=== PATIENT | female | born 1955 | race Caucasian/White ===

== ENCOUNTER 2018-02-21 08:33 | Day surgery (SDC) | payer OTHER ==
[2018-02-20 09:06] VITALS: BMI 43.4
[2018-02-21] MEDS ORDERED: MIDAZOLAM HCL 2 MG/2 ML SINGLE DOSE VIAL ONE (10:17)
[2018-02-21] MEDS ORDERED: PROPOFOL 20 ML ONE (10:17)
[2018-02-21] MEDS ORDERED: DEXAMETHASONE SOD PHOSPHATE 4 MG/1 ML VIAL ONE ×3 (10:19→11:00)
[2018-02-21] MEDS ORDERED: LIDOCAINE HCL/PF 2% SDV 5ML VIAL ONE ×2 (10:19→10:58)
[2018-02-21] MEDS ORDERED: KETOROLAC TROMETHAMINE 30 MG/1 ML VIAL ONE (10:59)
[2018-02-21] MEDS ORDERED: LACTATED RINGERS SOLUTION 1,000 ML IV SCH (11:30)
[2018-02-21] MEDS ORDERED: oxyCODONE HCL 5 MG TABLET PO PRN ×2 (11:30)
[2018-02-21] MEDS ORDERED: ONDANSETRON 4 MG/2 ML VIAL IVPUSH PRN (11:30)
[2018-02-21 12:21] VITALS: PULSE 68
[2018-02-21 13:39] VITALS: BP 123/69; TEMP 97.7
--- NOTE | 2018-02-25 10:45 | PATH ---
Surgical Pathology Report Patient Name: OKSANA FERNANDEZ [facility]. Rec. #: [id number] /Age/Gender: 1955 (Age: 62) / F Account: [id number] Location: [facility] SURGICAL Taken: 02/21/2018 Received: 02/21/2018 Reported: 02/25/2018 Physicians: Jose Newman DO Specimen(s) Received A: ENDOCERVICAL CURETTINGS B: ENDOMETRIAL POLYP Clinical History Postmenopausal bleeding Final Diagnosis A. ENDOCERVICAL CURETTINGS: ENDOMETRIOID ADENOCARCINOMA, FIGO GRADE 2. B. ENDOMETRIAL POLYP, BIOPSY: ENDOMETRIOID ADENOCARCINOMA, FIGO GRADE 2. SEPARATE ENDOMETRIAL POLYP WITH ADENOCARCINOMA INVOLVEMENT. Comment: Interdepartmental case reviewed with consensus on diagnosis. This case was discussed with Dr. Newman on February 25, 2018. Electronically Signed Nazia Cárdenas M.D. Gross Description A. Received in formalin labeled "endocervical curettings," a 1.6 x 1.3 x 0.3 cm aggregate of maldonado red soft tissue fragments. The formalin is filtered and the specimen is entirely submitted in one cassette. B. Received in formalin labeled "endometrial polyps," is a 2.6 x 2.5 x 0.3 cm aggregate of maldonado-pink soft tissue fragments admixed with blood clot. The formalin is filtered and the specimen is entirely submitted in one cassette. /02/21/2018 saudi02/21/2018
--- NOTE | 2018-02-25 13:07 | OP ---
DATE OF OPERATION: 02/25/2018 PREOPERATIVE DIAGNOSIS: Postmenopausal bleeding. POSTOPERATIVE DIAGNOSIS: Postmenopausal bleeding. PROCEDURE: Diagnostic hysteroscopy, dilatation and curettage. SURGEON: Jose Newman DO ANESTHESIA: General. DISTENTION MEDIA: Normal saline 500 mL. OUT: 350. DISTENTION MEDIA DEFICIT: 150 mL ESTIMATED BLOOD LOSS: 50 mL URINE OUTPUT: 50 mL SPECIMEN: endometrial lining and polyp. COMPLICATIONS: None. FINDINGS: Examination under anesthesia revealed a size uterus, normal contour. Hysteroscopy showed polyps on the anterior wall. DESCRIPTION OF PROCEDURE: The patient was taken to the OR where general anesthesia was administered without difficulty. She was placed in the dorsal lithotomy position with stirrups, and examination under anesthesia revealed normal anteverted uterus. The patient was then prepped and draped in the normal sterile fashion. A weighted speculum was inserted to the posterior aspect of the vagina. A single-tooth tenaculum was used to grasp the anterior lip of the cervix. The uterus was carefully sounded. The cervical os was sequentially dilated to accommodate the hysteroscope, and the uterus was distended with normal saline. The aforementioned findings were noted. The hysteroscope was then withdrawn. Cervix was further dilated to accommodate the curettage. The uterus was curettaged in a clockwise fashion until a gritty-like sensation was noted in all aspects of the uterus. The polyps and endometrial scrapings were sent to Pathology. The tenaculum was removed from the cervix with excellent hemostasis noted at the puncture site. The patient tolerated the procedure well. Instrument and sponge counts were correct x2. The patient was awakened from general anesthesia, taken to the recovery room in stable condition. The patient will be discharged home from the recovery room anesthesia and meeting all criteria of discharge. She was given instructions regarding followup in 2 weeks. DO JACEY [id number]
== END 2018-02-21 13:55 | disposition home or self-care (01) ==
LOC: JASU-SURG 08:33
PROVIDERS: ATTEND Obstetrics & Gynecology
PROC: 0UDB7ZX Extraction of Endometrium, Via Natural or Artificial Opening, Diagnostic (ICD-10-PCS; principal; 2018-02-21 10:00)
PROC: 0UJD8ZZ Inspection of Uterus and Cervix, Via Natural or Artificial Opening Endoscopic (ICD-10-PCS; 2018-02-21 10:00)
DX: N95.0 Postmenopausal bleeding (principal); N84.0 Polyp of corpus uteri
CPT/HCPCS: 88305-TC; 94760